=== PATIENT | male | born 1995 | race African-American/Black ===

== ENCOUNTER 2020-06-10 22:08 | Emergency (ER) | payer OTHER ==
[~2020-06-10] VITALS: Ht 182.9 cm; Wt 90.0 kg
[2020-06-10] MEDS ORDERED: ACETAMINOPHEN 325MG TABLET PO ONE (23:00)
[2020-06-10] MEDS ORDERED: IBUPROFEN 400MG TABLET PO ONE (23:00)
[2020-06-10] MEDS ORDERED: BACITRACIN ZINC OINT UDPKT TOP ONE (23:15)
[2020-06-10 23:32] VITALS: BP 136/70
== END 2020-06-10 23:44 | disposition home or self-care (01) ==
LOC: ER 22:08
DX: S00.83XA Contusion of other part of head, initial encounter (principal); M79.604 Pain in right leg; X58.XXXA Exposure to other specified factors, initial encounter; Y93.01 Activity, walking, marching and hiking; Y93.89 Activity, other specified; Y92.89 Other specified places as the place of occurrence of the external cause; Y99.8 Other external cause status
CPT/HCPCS: 99283